=== PATIENT | female | born 1960 | race Caucasian/White ===

== ENCOUNTER 2017-01-03 19:09 | Emergency (ER) | payer BC ==
--- NOTE | 2017-01-03 19:58 | UC ---
Respiratory Complaint HPI - HPI Summary HPI Summary: 56 YEAR OLD FEMALE PRESENTS WITH SEVERE SINUS CONGESTION AND RIGHT EYE REDNESS/ DISCHARGE. - History of Current Complaint Stated Complaint: HEAD COLD/PINK EYE Time Seen by Provider: 01/03/17 19:57 Hx Obtained From: Patient Hx Last Menstrual Period: N/A ablasian process Onset/Duration: Sudden Onset Severity Initially: Moderate Severity Currently: Moderate - Allergies/Home Medications Allergies/Adverse Reactions: Allergies Allergy/AdvReac Type Severity Reaction Status Date / Time Sulfa Drugs Allergy Hives Verified 01/03/17 20:02 Home Medications: Home Medications Prewmccinligf-Ds-IL W/ APAP [Tylenol Cold & Flu Severe] 2 tab PO DAILY PRN 01/03 [History Confirmed 01/03/17] buPROPion TAB* [Wellbutrin TAB*] 2 tab PO DAILY 01/03/17 [History Confirmed 12/12] PMH/Surg Hx/FS Hx/Imm Hx - Surgical History Surgical History: Yes Surgery Procedure, Year, and Place: Ablasion 2010 - Social History Substance Use Type: None Review of Systems Constitutional: Negative Skin: Negative Eyes: Drainage, Eye Redness ENT: Negative Respiratory: Negative Cardiovascular: Negative Gastrointestinal: Negative Genitourinary: Negative Motor: Negative Neurovascular: Negative Musculoskeletal: Negative Neurological: Negative Psychological: Negative All Other Systems Reviewed And Are Negative: Yes Physical Exam Triage Information Reviewed: Yes Vital Signs Reviewed: Yes Eyes: Positive: Conjunctiva Inflamed, Discharge ENT Exam: Normal Dental Exam: Normal Neck exam: Normal Neck: Positive: 1 Respiratory Exam: Normal Cardiovascular Exam: Normal Abdominal Exam: Normal Musculoskeletal Exam: Normal Neurological Exam: Normal Psychological Exam: Normal Skin Exam: Normal Respiratory Course/Dx - Differential Dx/Diagnosis Provider Diagnoses: CONJUNCTIVITIS. SINUSITIS Discharge - Discharge Plan Condition: Stable Disposition: HOME Prescriptions: Amoxicillin/Clavulanate TAB* [Augmentin TAB 875*] 875 mg PO BID #20 tab LoraTADine TAB(NF) [Claritin 10 MG TAB(NF)] 10 mg PO DAILY #30 tab Methylprednisolone [Medrol Dosepak 4 MG*] 4 mg PO .SEE KENDRICK INSTRUCTION #21 tab Polymyx/Trimethoprim OPTH* [Polytrim OPHTH*] 1 drop BOTH EYES Q6H #1 btl guaiFENesin/CODIEN 100MG-10MG* [Robitussin AC 100Mg-10Mg*] 5 ml PO Q6H PRN #120 ml MDD 20 ML PRN Reason: Cough Patient Education Materials: Sinusitis (ED), Conjunctivitis (ED) Referrals: Susan Maria MD [Primary Care Provider] -
[2017-01-03 20:03] VITALS: BP 156/86
== END 2017-01-03 20:22 | disposition home or self-care (01) ==
LOC: UCCORT 19:09
DX: J32.9 Chronic sinusitis, unspecified (principal); H10.31 Unspecified acute conjunctivitis, right eye; Z88.2 Allergy status to sulfonamides
CPT/HCPCS: 99212; G0463

== ENCOUNTER 2017-05-19 19:42 | Emergency (ER) | payer BC ==
[2017-05-19 20:44] VITALS: BP 147/94
--- NOTE | 2017-05-19 21:33 | UC ---
Ear Complaint HPI - HPI Summary HPI Summary: head ache vomiting and right ear pain began 2 days ago - History of Current Complaint Chief Complaint: UCGeneralIllness Stated Complaint: SORE THROAT Time Seen by Provider: 05/19/17 21:25 Hx Obtained From: Patient Hx Last Menstrual Period: post menopause ?: No Onset/Duration: Sudden Onset Severity Initially: Moderate Severity Currently: Moderate Pain Intensity: 5 Pain Scale Used: 0-10 Numeric Associated Signs/Symptoms: Positive: URI Symptoms - Allergies/Home Medications Allergies/Adverse Reactions: Allergies Allergy/AdvReac Type Severity Reaction Status Date / Time Sulfa (Sulfonamide Allergy Hives Verified 05/19/17 20:45 Antibiotics) Home Medications: Home Medications Ibuprofen 200 mg PO 05/19/17 [History] Loperamide CAP* [Imodium CAP*] 05/19/17 [History] PMH/Surg Hx/FS Hx/Imm Hx Previously Healthy: No Cardiovascular History: Hypertension Psychological History: Depression - Surgical History Surgical History: Yes Surgery Procedure, Year, and Place: Ablasion 2010 - Family History Known Family History: Positive: Unknown - Social History Occupation: Employed Full-time Lives: Alone Alcohol Use: Occasionally Substance Use Type: None Smoking Status (MU): Never Smoked Tobacco Review of Systems Constitutional: Fever Skin: Negative Eyes: Negative ENT: Ear Ache Respiratory: Negative Cardiovascular: Negative Gastrointestinal: Diarrhea, Nausea Genitourinary: Negative Motor: Negative Neurovascular: Negative Musculoskeletal: Negative Neurological: Negative Psychological: Negative Is Patient Immunocompromised?: No All Other Systems Reviewed And Are Negative: Yes Physical Exam Triage Information Reviewed: Yes Appearance: Well-Appearing, No Pain Distress, Well-Nourished Vital Signs: Initial Vital Signs Temp 101.0 F 05/19/17 20:38 Pulse 97 05/19/17 20:38 Resp 16 05/19/17 20:38 BP 147/94 05/19/17 20:38 Pulse Ox 99 05/19/17 20:38 Vital Signs Reviewed: Yes Eye Exam: Normal Eyes: Positive: Conjunctiva Clear ENT Exam: Normal ENT: Positive: Normal ENT inspection, Hearing grossly normal, Pharynx normal, TMs normal - left, TM bulging - right, TM red - right, Uvula midline. Negative : Nasal congestion, Nasal drainage, Trismus, Muffled voice, Hoarse voice, Dental tenderness, Sinus tenderness Dental Exam: Normal Neck exam: Normal Neck: Positive: Supple, Nontender Respiratory Exam: Normal Respiratory: Positive: No respiratory distress, No accessory muscle use Cardiovascular Exam: Normal Cardiovascular: Positive: RRR, Pulses Normal, Brisk Capillary Refill Musculoskeletal Exam: Normal Musculoskeletal: Positive: Strength Intact, ROM Intact Neurological Exam: Normal Neurological: Positive: Alert, Muscle Tone Normal Psychological Exam: Normal Skin Exam: Normal Skin: Positive: rashes Diagnostics - Laboratory Diagnostic Studies Completed/Ordered: rst (-), Influenza A/B (-) Ear Complaint Course/Dx - Course Course Of Treatment: amoxicillin, increase fluids, rest thylenol, ibuprofen for pain follow with pcp - Differential Dx/Diagnosis Provider Diagnoses: Right otitis media Discharge - Discharge Plan Condition: Stable Disposition: HOME Prescriptions: Amoxicillin PO (*) [Amoxicillin 875 MG (*)] 875 mg PO BID #19 tab Patient Education Materials: Fever in Adults (ED), Ear Infection (ED), Hypertension (ED) Forms: *Work Release Referrals: Susan Maria MD [Primary Care Provider] - 2 Weeks
[2017-05-19] MEDS ORDERED: Amoxicillin PO (*) 250 MG CAP PO ONE (21:34)
[2017-05-19] MEDS: Amoxicillin PO (*) 500 MG CAP PO ONE ×2 (21:39→21:40)
== END 2017-05-19 21:47 | disposition home or self-care (01) ==
LOC: UCEAST 19:42
DX: H66.91 Otitis media, unspecified, right ear (principal)
CPT/HCPCS: 87502; 87651; 99212; A9270-GY; G0463

== ENCOUNTER 2018-07-27 13:40 | Emergency (ER) | payer BC, OTHER ==
[2018-07-27 14:29] VITALS: BP 159/96
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
== END 2018-07-27 16:09 | disposition home or self-care (01) ==
LOC: UCCORT 13:40
DX: K08.89 Other specified disorders of teeth and supporting structures (principal); R68.84 Jaw pain; Z88.5 Allergy status to narcotic agent; Z88.2 Allergy status to sulfonamides
CPT/HCPCS: 70486; 99212; G0463